=== PATIENT | female | born 1940 | race Caucasian/White ===

== ENCOUNTER 2019-06-18 12:47 | Inpatient (IN) | payer OTHER ==
[~2019-06-18] VITALS: Ht 157.5 cm; Wt 61.4 kg
[~2019-06-18 12:47] MED LIST: ACETAMINOPHEN325 M1 PO; ADULT LOW DOSE81 MG PO; ASPIR 8181 MG PO; ASPIRIN325 PO; ATORVASTATIN CA40 MG PO; CIPRO500 MG PO; CLOPIDOGREL75 MG PO; COREG6.25 MG PO; CRESTOR10 MG PO; HYDROCODON-ACE1 EAC7 PO; HYDROCODONE-AP1 EAC6 PO; IMDUR 30 MG TAB30 M1 PO; MEDROLDOSEPACK PO; MOM PO; MYLANTA TABLET1 TA1 PO; NITROGLYCERIN0.4 MG SUBLING; PLAVIX 75 MG TA75 M1 PO; TESSALON PERLE100 M1 PO; ULTRAM 50MG TAB50 MG PO; ZPAK PO
[2019-06-18] MEDS ORDERED: DULCOLAX5 MG PO (13:13)
[2019-06-18] MEDS ORDERED: LIPITOR80 MG PO (13:13)
[2019-06-18 13:21] VITALS: BP 141/43
[2019-06-18 13:31] LABS: ABSOLUTE EOSINOPHILS 0.1 thou/uL (0.0-0.7); ABSOLUTE LYMPHOCYTES 1.1 thou/uL (0.8-5.3); ABSOLUTE MONOCYTES 0.5 thou/uL (0.0-1.2); ABSOLUTE NEUTROPHILS 2.8 thou/uL (1.6-8.1); BASOPHILS 0.9 %; EOSINOPHILS 1.8 %; HEMATOCRIT 33.3 % (37.0-47.0); HEMOGLOBIN 10.9 gm/dL (12.0-15.0); LYMPHOCYTES 24.3 %; MCH 27.7 pg (26.0-34.0); MCHC 32.7 g/dL (28.0-37.0); MCV 84.5 fL (80.0-100.0); MONOCYTES 11.8 %; MPV 8.1 fl. (7.2-11.1); NUCLEATED RBCS 0 /100WBC; PLATELET COUNT* 182 thou/uL (150-400); POLYS 61.2 %; RBC 3.95 mil/uL (4.20-5.00); RDW-CV 15.4 % (10.5-14.5); WBC 4.6 thou/uL (4.0-11.0)
[2019-06-18 13:39] LABS: ANION GAP 9 mmol/L (7-16); BUN 12 mg/dL (7-18); CALCIUM 8.1 mg/dL (8.5-10.1); CHLORIDE 106 mmol/L (98-107); CO2 25 mmol/L (21-32); CREATININE 0.7 mg/dL (0.6-1.3); GLUCOSE 161 mg/dL (70-99); POTASSIUM 3.7 mmol/L (3.5-5.1); SODIUM 140 mmol/L (136-145)
[2019-06-18 13:41] LABS: PROTIME 10.6 Seconds (9.20-11.50)
[2019-06-18 13:50] LABS: ALBUMIN 3.2 g/dL (3.4-5.0); ALKALINE PHOSPHATASE 85 U/L (46-116); LIPASE 180 U/L (73-393); NT-PRO BRAIN NAT PEPTIDE 778 pg/mL (<300); SGOT 14 U/L (15-37); SGPT 19 U/L (30-65); TOTAL BILIRUBIN 0.3 mg/dL (<0.1-1.0); TOTAL PROTEIN 6.1 g/dL (6.4-8.2); TROPONIN-I LEVEL <0.06 ng/mL (<0.06)
[2019-06-18 15:23] VITALS: BP 141/43
[2019-06-18 15:30] VITALS: BP 156/62
[2019-06-18 20:00] VITALS: BP 102/41
[2019-06-19] VITALS (7 sets, daily range): BP systolic 111–145; BP diastolic 44–55
[2019-06-19 05:02] LABS: ABSOLUTE EOSINOPHILS 0.1 thou/uL (0.0-0.7); ABSOLUTE LYMPHOCYTES 1.3 thou/uL (0.8-5.3); ABSOLUTE MONOCYTES 0.7 thou/uL (0.0-1.2); ABSOLUTE NEUTROPHILS 2.8 thou/uL (1.6-8.1); BASOPHILS 0.9 %; EOSINOPHILS 1.5 %; HEMATOCRIT 34.5 % (37.0-47.0); HEMOGLOBIN 11.4 gm/dL (12.0-15.0); LYMPHOCYTES 26.5 %; MCH 27.6 pg (26.0-34.0); MCHC 33.1 g/dL (28.0-37.0); MCV 83.4 fL (80.0-100.0); MONOCYTES 13.7 %; MPV 8.2 fl. (7.2-11.1); NUCLEATED RBCS 0 /100WBC; PLATELET COUNT* 190 thou/uL (150-400); POLYS 57.4 %; RBC 4.14 mil/uL (4.20-5.00); RDW-CV 15.6 % (10.5-14.5); WBC 4.8 thou/uL (4.0-11.0)
[2019-06-19 05:08] LABS: CALCIUM 8.6 mg/dL (8.5-10.1); CREATININE 0.7 mg/dL (0.6-1.3); POTASSIUM 3.7 mmol/L (3.5-5.1)
--- NOTE | 2019-06-19 11:59 | EKG ---
[place] [address] ELECTROCARDIOGRAM REPORT Name: CASECRISTINE Room: [address] ADM IN M.R.#: [id number] Admission: 06/18/19 Attend Phys: Nicola Jacobson MD Discharge: Date of : 42 Report #: [id number] THIS REPORT FOR: //name// [facility] ED Test Date: 2019-06-18 Test Time: 13:13:20 Pat Name: CRISTINE FREEMAN Department: Room: [facility] Gender: F Executive Recruiter: EV : 1940 Requested By: Rylan Villanueva Order Number: [id number] MD: Abdirashid Dinero Measurements Intervals [place] Rate: 61 P: 85 RI: 203 QRS: -16 QRSD: 108 T: 144 QT: 429 QTc: 432 Interpretive Statements Sinus rhythm LVH with secondary repolarization abnormality Anterior Q waves, possibly due to LVH Compared to ECG 05/14/2017 08:40:19 Q waves now present ST (T wave) deviation still present Electronically Signed On 06-19-2019 11:59:18 CDT by Abdirashid Dinero [email or web address] <ELECTRONICALLY SIGNED> By: Abdirashid Dinero MD, [facility] 06/19/19 1159 1313 1313 Abdirashid Dinero MD, [facility] /EPI
--- NOTE | 2019-06-19 12:56 | 2DMMODE ---
[place] [address] 2 D/M-MODE ECHOCARDIOGRAM Name: CRISTINE FREEMAN Room: [address] ADM IN [facility]#: [id number] Admission: 06/18/19 Attend Phys: Nicola Jacobson, Discharge: Date of : 42 Date of Service: 06/19/19 1255 Report #: [id number] THIS REPORT FOR: //name// APPROVED REPORT Study performed: 06/19/2019 11:35:08 EXAM: Comprehensive 2D, Doppler, and color-flow Echocardiogram Patient Location: In-Patient Room #: 201 Status: routine BSA: 1.61 HR: 60 bpm BP: 111/44 mmHg Rhythm: NSR Other Information Study Quality: Good Indications Murmur 2D Dimensions IVSd: 14.70 (7-11mm) LVOT Diam: 18.78 (18-24mm) LVDd: 42.88 mm PWd: 13.37 (7-11mm) Ascending Ao: 28.57 (22-36mm) LVDs: 28.55 (25-40mm) Aortic Root: 28.51 mm Volumes Left Atrial Volume (Systole) LA ESV Index: 39.70 mL/m2 Aortic Valve AoV Peak Gurwinder.: 3.74 m/s AO Peak Gr.: 55.95 mmHg AO Mean Gr.: 32.39 mmHg AO V2 VTI: 93.04 cm Mitral Valve MV Mean Gr.: 1.47 mmHg E/A Ratio: 0.75 MV Decel. Time: 371.89 ms MV E Max Gurwinder.: 0.71 m/s MV PHT: 107.85 ms MVA (PHT): 2.04 cm2 [place] [address] 2 D/M-MODE ECHOCARDIOGRAM Name: CASECRISTINE Room: [address] IN ..#: [id number] Admission: 06/18/19 Attend Phys: Nicola Jacobson, Discharge: Date of : 42 Date of Service: 06/19/19 1255 Report #: [id number] TDI E/Lateral E': 11.83 E/Medial E': 14.20 Medial E' Gurwinder.: 0.05 m/s Lateral E' Gurwinder.: 0.06 m/s Pulmonary Valve PV Peak Gurwinder.: 0.90 m/s PV Peak Gr.: 3.21 mmHg Tricuspid Valve RAP Estimate: 5.00 mmHg TR Peak Gr.: 22.77 mmHg RVSP: 27.00 mmHg PA Pressure: 27.00 mmHg Left Ventricle The left ventricle is normal size. There is normal LV segmental wall motion. Mild to moderate concentric left ventricular hypertrophy. Left ventricular systolic function is normal. The left ventricular ejection fraction is within the normal range. LVEF is 55-60%. Grade I - abnormal relaxation pattern. Right Ventricle The right ventricle is normal size. The right ventricular systolic function is normal. Atria Left atrium is mildly dilated. The right atrium size is normal. Aortic Valve Moderate aortic valve sclerosis. Trace aortic regurgitation. Mild to moderate aortic stenosis. Mitral Valve There is mitral annular calcification. Mild to moderate mitral regurgitation. No evidence of mitral valve stenosis. Tricuspid Valve The tricuspid valve is normal in structure. Trace tricuspid regurgitation. No pulmonary hypertension. Pulmonic Valve The pulmonary valve is normal in structure. There is no pulmonic valvular regurgitation. [place] [address] 2 D/M-MODE ECHOCARDIOGRAM Name: CRISTINE FREEMAN Room: [address] IN ..#: [id number] Admission: 06/18/19 Attend Phys: Nicola Jacobson, Discharge: Date of : 42 Date of Service: 06/19/19 1255 Report #: [id number] The aortic root is normal in size. IVC is normal in size and collapses >50% with inspiration. Pericardium There is no pericardial effusion. <Conclusion> The left ventricle is normal size. Mild to moderate concentric left ventricular hypertrophy. Left ventricular systolic function is normal. The left ventricular ejection fraction is within the normal range. LVEF is 55-60%. Grade I - abnormal relaxation pattern. The right ventricle is normal size. Left atrium is mildly dilated. Moderate aortic valve sclerosis. Trace aortic regurgitation. Mild to moderate aortic stenosis There is mitral annular calcification. Mild to moderate mitral regurgitation. No evidence of mitral valve stenosis. The tricuspid valve is normal in structure. IVC is normal in size and collapses >50% with inspiration. There is no pericardial effusion. There is normal LV segmental wall motion. <ELECTRONICALLY SIGNED> By: Abdirashid Dinero MD, [facility] 06/19/19 1255 1255 1255 Abdirashid Dinero MD, [facility] /INF
--- NOTE | 2019-06-19 17:03 | CARDNUC ---
[place] [address] CARDIAC NUCLEAR IMAGING REPORT Name: CRISTINE FREEMAN Room: [address] IN [facility]#: [id number] Admission: 06/18/19 Attend Phys: Nicola Jacobson, Discharge: Date of : 42 Date of Service: 06/19/19 1703 Report #: [id number] THIS REPORT FOR: //name// APPROVED REPORT Study performed: 06/19/2019 15:03:20 Exam: Nuclear Stress Test Indication: Chest pain, Dyspnea, Lightheadedness, Diaphoresis. Patient Location: In-Patient Room #: 201 Stress Tech: Anju Retana Stress Nurse: Madonna Solorzano R.N. Ht: 5 ft 2 in Wt: 134 lbs BSA: 1.61 m2 BMI: 24.50 Medical History Medical History: Angina, CAD s/p stent, Carotid artery disease, Fatigue, HTN, Hyperlipidemia, SOB, Weakness, Systolic Murmur, LE edema, Carotid endarterectomy. Medications: Carvedilol, Atorvastatin, ASA 81 mg, Plavix, Hydralazine, NTG. Allergies: No known drug allergies Cardiac Risk Factors: Age, FHX of CAD, HTN, Hyperlipidemia, SOB, Past Smoker, Edema, Carotid Artery Endarterectomy. Previous Cardiac Procedures: PCI Pretest Chest Pain Characteristics: No chest pain Exercise History: Indeterminate Physical Disabilities: Generalized weakness. Unstable gait. Meds Held (24 hrs): Carvedilol, NTG. Stress Test Details Stress Test: Pharmacologic stress testing performed using 0.4 mg of regadenoson per 5 mL given IV over 10 seconds. Reason for pharmacologic stress test: Unstable gait, generalized weakness.. HR Resting HR: 62 bpm Max Heart Rate (APMHR): 143 bpm Max HR Achieved: 104 bpm Target HR (85% APMHR): 121 bpm % of APMHR: 72 Recovery HR: [place] [address] CARDIAC NUCLEAR IMAGING REPORT Name: CRISTINE FREEMAN Room: [address] IN [facility]#: [id number] Admission: 06/18/19 Attend Phys: Nicola Jacobson, Discharge: Date of : 42 Date of Service: 06/19/19 1703 Report #: [id number] Resting BP: 145/71 mmHg Max BP: 173/61 mmHg ECG Resting ECG: Sinus Rhythm, LVH with repolarization changes Stress ECG: Sinus Rhythm, LVH with repolarization changes ST Change: None Arrhythmia: None Recovery ECG: Sinus Rhythm, LVH with repolarization changes Recovery ST Change: None Recovery Arrhythmia: None Clinical Reason for Termination: Completed protocol Stress Symptoms: Dyspnea, Chest pain, Lightheaded, Heaviness in legs and arms, Center CP 1-11/20. Exercise duration: 00 min 00 sec Exercise capacity: 1.00 METs The patient tolerated Lexiscan infusion without significant cardiac symptoms. Nurse Comments 78 year old female inpatient presented with recent HX of CP, SOA, Lightheadedness and Diaphoresis. Patient tolerated sitting Lexiscan well. Recovery unremarkable with PO caffeine, effective. Patient was escorted via wheelchair by staff to Nuclear Medicine for images. Patient was stable with no complaints at that time. Stress ECG Conclusion Baseline 12-lead EKG shows sinus rhythm. There is left hypertrophy with repolarization abnormalities. EKGs during and post Lexiscan infusion showed no significant changes when compared to baseline. NM EXAM: Myocardial Perfusion REST/STRESS Imaging Protocol: Rest Tc-99m/Stress Tc-99m 1 day Resting Data Rest SPECT myocardial perfusion imaging was performed in supine position 30 minutes following the intravenous injection of 11.0 mCi of Tc-99m Sestamibi. Time of rest injection: 13:50 The images were gated to evaluate regional wall motion and calculate left [place] [address] CARDIAC NUCLEAR IMAGING REPORT Name: CASECRISTINE Room: [address] IN M.R.#: [id number] Admission: 06/18/19 Attend Phys: Nicola Jacobson, Discharge: Date of : 42 Date of Service: 06/19/19 1703 Report #: [id number] Administration Route: IV Administration Site: Right AC Pharmacologic Stress Pharmacologic stress test was performed by injecting Regadenoson 0.4 mg IV push followed by the intravenous injection of 35.8 mCi of Tc-99m Sestamibi. Time of stress injection: 15:20 Administration Route: IV Administration Site: Right AC Heart Rate at time of stress injection: 104 bpm. Gated Stress SPECT was performed 40 minutes after stress injection. The images were gated to evaluate regional wall motion and calculate left ventricular ejection fraction. Prone imaging was performed. Study Quality Study: Fair Artifact: Mild Diaphragmatic artifact Study Data At rest, the left ventricular ejection fraction was 66%.. Post stress, the left ventricular ejection was 67%.. TID = 1.53. Perfusion Perfusion images obtained at rest and post Lexiscan stress showed uniform uptake of the radioisotope throughout the myocardium. Wall Motion Gated images were limited due to diaphragmatic attenuation artifact. Review of the raw data shows relatively normal wall motion. Nuclear Conclusion ECG Findings: non-diagnostic Clinical Findings: negative for ischemia Nuclear Findings: negative for ischemia Exercise Capacity: not assessed Left Ventricular Function: nondiagnostic data Perfusion images showed no defect to suggest infarct or ischemia. Review of the raw data suggests normal LV systolic function. Echo correlation recommended. This is not a high risk study. <Conclusion> Baseline 12-lead EKG shows sinus rhythm. [place] [address] CARDIAC NUCLEAR IMAGING REPORT Name: CASE,CRISTINE Carrasco Room: [address] IN [facility]#: [id number] Admission: 06/18/19 Attend Phys: Nicola Jacobson, Discharge: Date of : 42 Date of Service: 06/19/19 1703 Report #: [id number] with repolarization abnormalities. EKGs during and post Lexiscan infusion showed no significant changes when compared to baseline. <ELECTRONICALLY SIGNED> By: Iron Gant MD, FACC 06/19/191702 02 02 Iron Gant MD, FACC /INF
== END 2019-06-19 18:04 | disposition home or self-care (01) | DRG 392 ==
LOC: M.ERS 12:47 → M.TBA-ER 14:05 → M.2W 14:05
PROVIDERS: Emergency Medicine; ADMIT Internal Medicine
DX: K21.9 Gastro-esophageal reflux disease without esophagitis (principal); I25.119 Atherosclerotic heart disease of native coronary artery with unspecified angina pectoris; I10 Essential (primary) hypertension; E78.5 Hyperlipidemia, unspecified; Z90.710 Acquired absence of both cervix and uterus; Z95.5 Presence of coronary angioplasty implant and graft; Z79.82 Long term (current) use of aspirin; Z79.899 Other long term (current) drug therapy; Z87.11 Personal history of peptic ulcer disease

== ENCOUNTER 2021-06-03 10:47 | Observation (INO) | payer OTHER ==
[2021-06-03] VITALS (15 sets, daily range): BP systolic 110–192; BP diastolic 37–68
[~2021-06-03] VITALS: Ht 157.5 cm; Wt 58.1 kg
--- NOTE | ~2021-06-03 | H ---
[address] [address] HISTORY AND PHYSICAL Name: CRISTINE FREEMAN Room: [address] Marylu Polo#: [id number] Admission: 06/03/21 Attend Phys: Iron Gant MD Discharge: 06/04/21 Date of : 42 Report #: [id number] THIS REPORT FOR: cc: Kitty Gloria Linda J. DO [facility],Medical Records Staff ~ Please refer to the History and Physical performed in the physician's office. By: 0646Medical Records Staff VALENCIA /RAFFI
[~2021-06-03 10:47] MED LIST changes: +DULCOLAX5 MG PO; +LIPITOR80 MG PO
[2021-06-03 11:45] LABS: HEMATOCRIT 40.1 % (37.0-47.0); HEMOGLOBIN 12.7 gm/dL (12.0-15.0); MCH 26.4 pg (26.0-34.0); MCHC 31.7 g/dL (28.0-37.0); MCV 83.2 fL (80.0-100.0); MPV 8.2 fl. (7.2-11.1); RBC 4.82 mil/uL (4.20-5.00); RDW-CV 15.8 % (10.5-14.5); WBC 6.5 thou/uL (4.0-11.0)
[2021-06-03 11:58] LABS: APTT 28.3 Seconds (25.0-31.3); PROTIME 10.3 Seconds (9.20-11.50)
[2021-06-03 12:00] LABS: ALBUMIN 4.1 g/dL (3.4-5.0); ALKALINE PHOSPHATASE 126 U/L (46-116); ANION GAP 8 mmol/L (7-16); BUN 18 mg/dL (7-18); CALCIUM 8.7 mg/dL (8.5-10.1); CHLORIDE 104 mmol/L (98-107); CHOLESTEROL 235 mg/dL (<200); CO2 28 mmol/L (21-32); CREATININE 0.6 mg/dL (0.6-1.3); GLUCOSE 90 mg/dL (70-99); HDL CHOLESTEROL 60 mg/dL (>40); LDL CHOLESTEROL 154 mg/dL (<100); POTASSIUM 4.1 mmol/L (3.5-5.1); SGOT 20 U/L (15-37); SGPT 23 U/L (30-65); SODIUM 140 mmol/L (136-145); TC:HDL 3.9 Ratio (Not establshd); TOTAL BILIRUBIN 0.4 mg/dL (<0.1-1.0); TOTAL PROTEIN 7.5 g/dL (6.4-8.2); TRIGLYCERIDE 106 mg/dL (<150); VLDL 21 mg/dL (<40)
[2021-06-03 12:03] LABS: SERUM ASSESSMENT Clear
--- NOTE | 2021-06-03 15:07 | CARD ---
[address] [address] CARDIAC CATH REPORT Name: CRISTINE FREEMAN Room: [address] Marylu M.R.#: [id number] Admission: 06/03/21 Attend Phys: Iron Gant MD Discharge: Date of : 42 Report #: [id number] THIS REPORT FOR: cc: Kitty Gloria Linda J. DO Holkins, John M. MD [facility] ~ APPROVED REPORT Study performed: 06/03/2021 12:51:25 Patient Details Patient Status: Out-Patient Room #: The patient is a 80 year-old female Event Personnel Iron Gant Marketing Team Lead, Paddy Soto RTR Monitor, Tutu Schrader McKeel, Tiffany RN RN, Abdirashid Dinero Solar Power Installer Procedures Performed Left Heart Cath w/or w/o Coronaries [id number] [facility] Place w/wo Plasty Single RCA [id number] Hemostasis w/ Angioseal Indication Dyspnea, Chest pain Risk Factors Hypercholesterolemia, Hypertension Previous Procedures/Diagnoses Previous PCI Admission/Lab Medications/Medications given during procedure Lidocaine Subcut 20 ml, Midazolam (Versed) IV 1 mg, Fentanyl IV 25 mcg, Angiomax IV 9 ml, Angiomax IV 20.3 ml per hr, Effient PO 60 mg, Aspirin PO 325 mg Procedure Narrative The patient was brought electively to the Cardiac Catheterization Laboratory and was prepped and draped in a sterile manner. The right femoral was infiltrated with 2% Lidocaine subcutaneous anesthesia. IV conscious sedation was used throughout procedure with appropriate monitoring and was performed in the [place] [address] CARDIAC CATH REPORT Name: CRISTINE FREEMAN Room: [address] Mary[place] Polo#: [id number] Admission: 06/03/21 Attend Phys: Iron Gant MD Discharge: Date of : 42 Report #: [id number] who was an independent trained observer other than the physician performing the procedure. A [place] 6 FR sheath was inserted into the right femoral artery. Coronary angiography was performed using coronary diagnostic catheters. The right coronary system was accessed and visualized with a Diagnostic JR4 6Fr catheter. The left coronary system was accessed and visualized with a Diagnostic JL4 6Fr catheter. The left ventricle was accessed and visualized with a Diagnostic JR4 6Fr catheter. Left ventricular/Aortic Valve gradient assessed via catheter pullback. Pre-demployment femoral angiogram was performed . Closure device was deployed with a 6 Fr Angioseal. The patient tolerated the procedure well and there were no complications associated with the procedure. There was no hematoma. Intraoperative Conscious Sedation Sedation start time: 1251 Case end Time: 1313 Fentanyl 25 mcg Versed 1 mg Fluoro Time: 3.7 minutes Dose: DAP 54248 cGycm2 512.97 mGy Contrast Type and Amount: Omnipaque 110 ml Diagnostic Cath Left Main 30% ostial proximal narrowing LAD Widely patent proximal LAD stent with 0% LAD narrowing Circumflex Small nondominant vessel with 30% proximal narrowing Right Coronary Large dominant vessel with 75% tubular proximal stenosis and 50% mid vessel stenosis Left Ventriculography Left Ventriculography was not performed. Hemodynamics The aortic pressure is 154/46 mmHg with a mean of 76 mmHg. The left ventricular pressure is 141/6 mmHg with a mean of mmHg. The left ventricular end diastolic pressure is 24 mmHg. PCI Technique Lesion Anticoagulation was achieved with Angiomax. Percutaneous coronary intervention was performed on the proximal right coronary artery. The lesion stenosis prior to intervention was 75% with JOSETTE 3 flow. A 6F JR 4.0 Guide Catheter was used to engage the Right ostium. A IG: BMW 190cm Interventional Guidewire was [place] [address] CARDIAC CATH REPORT Name: CRISTINE FREEMAN Room: [address]#: [id number] Admission: 06/03/21 Attend Phys: Iron Gant MD Discharge: Date of : 42 Report #: [id number] BALLOON DILATION A Balloon catheter Trek RX 2.75 X 12 was inserted and inflated up to 14.00atm for 11seconds. STENT DEPLOYMENT A drug-eluting stent Davian RX Stent 3.0X18mm was inserted and inflated up to 12.00atm for 6seconds. Additional Inflation: 14.00atm for 5seconds. Final angiography reveals 0 % stenosis with JOSETTE 3 flow. Conclusion 1. Significant coronary artery disease characterized by the following: A 30% ostial proximal left main coronary artery narrowing B widely patent proximal LAD stent C 30% narrowing of the proximal portion of the small nondominant circumflex D 75% tubular proximal right coronary stenosis with 50% mid vessel stenosis 2. Minimal trans aortic valvular systolic pressure gradient on direct pullback 3. Successful PCI with deployment of drug-eluting stent at the site of 75% tubular proximal right coronary stenosis with 0% residual narrowing and JOSETTE-3 flow to the distal vessel Recommendations Cardiac Risk Reduction Program Aggressive Medical Therapy Medications Administered Aspirin (any) [place] [address] CARDIAC CATH REPORT Name: CRISTINE FREEMAN Room: [address] Melani#: [id number] Admission: 06/03/21 Attend Phys: Iron Gant MD Discharge: Date of : 42 Report #: [id number] Diagnostic Cath Approved by: Iron Gant MD Date/Time: 06/03/2021 15:03:31 <ELECTRONICALLY SIGNED> By: Abdirashid Dinero MD, [facility] 06/03/21 1507 1507 1507John Timi Dinero MD, FACC /INF
--- NOTE | 2021-06-03 17:02 | TEE ---
[place] [address] TRANSESOPHAGEAL ECHOCARDIOGRAM Name: CRISTINE FREEMAN Room: [address]#: [id number] Admission: 06/03/21 Attend Phys: Iron Gant, Discharge: Date of : 42 Date of Service: 06/03/21 1702 Report #: [id number] THIS REPORT FOR: cc: Kitty Gloria Linda J. DO Liston, Michael J. MD [facility] ~ APPROVED REPORT Study performed: 06/03/2021 12:04:31 EXAM: Transesophageal Echocardiogram Patient Location: Out-Patient Status: routine HR: 62 bpm BP: 148/51 mmHg Rhythm: NSR Other Information Study Quality: Good Indications HOCM, PRE CATH, RULE OUT AORTIC STENOSIS Echo Enhancing Agent Indication: Rule out Shunt Agent(s) / Amount(s) Used: Agitated Saline 10 cc Procedure After obtaining informed consent, patient underwent transesophageal echo in the [employer]. Type of Sedation : Conscious Sedation Sedation was administered by Danielle Guevara RN. Sedation start time: 1220 Case end Time: 1237 Sedation was achieved intravenously with: Versed (3) Fentanyl (75) Transesophageal probe was inserted and advanced into esophagus without difficulty by Iron Gant MD, FACC. Echo enhancement indication: R/O Septal defect. Echo enhancement agent administered: Agitated Saline The SHILOH was performed without complications. Throughout the procedure, the blood pressure, pulse oximetry, cardiac rhythm, and rate were monitored. The patient tolerated the procedure without adverse effects. Recovery from conscious sedation was uneventful [place] [address] TRANSESOPHAGEAL ECHOCARDIOGRAM Name: CRISTINE FREEMAN Room: [address]#: [id number] Admission: 06/03/21 Attend Phys: Iron Gant, Discharge: Date of : 42 Date of Service: 06/03/21 1702 Report #: [id number] stable. Left Ventricle The left ventricle is normal size. There is normal LV segmental wall motion. Moderate to severe concentric left ventricular hypertrophy. 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 Left ventricular systolic function is normal. The left ventricular ejection fraction is within the normal range. LVEF is 65-70%. Right Ventricle The right ventricle is normal size. The right ventricular systolic function is normal. Atria The left atrium size is normal. No thrombus is visualized in the left atrium or appendage. The interatrial septum is intact with no evidence for an atrial septal defect. The right atrium size is normal. Aortic Valve Mild aortic valve sclerosis. No aortic regurgitation is present. There is no aortic valvular stenosis. Mitral Valve The mitral valve is normal in structure. Mild mitral regurgitation. No evidence of mitral valve stenosis. Tricuspid Valve The tricuspid valve is normal in structure. There is no tricuspid valve regurgitation noted. Pulmonic Valve The pulmonary valve is normal in structure. There is no pulmonic valvular regurgitation. Great Vessels The aortic root is normal in size. Pericardium There is no pericardial effusion. <Conclusion> The left ventricle is normal size. Moderate to severe concentric left ventricular hypertrophy. Echo findings are consistent [place] [address] TRANSESOPHAGEAL ECHOCARDIOGRAM Name: CASE,CRISTINE Carrasco Room: [address] M.R.#: [id number] Admission: 06/03/21 Attend Phys: Iron Gant, Discharge: Date of : 42 Date of Service: 06/03/211701 Report #: [id number] cardiomyopathy. Left ventricular systolic function is normal. The left ventricular ejection fraction is within the normal range. LVEF is 65-70%. The left atrium size is normal. No thrombus is visualized in the left atrium or appendage. Mild aortic valve sclerosis. Mild mitral regurgitation. <ELECTRONICALLY SIGNED> By: Iron Gant MD, [facility] 06/03/211701 01 1702 Iron Gant MD, FACC /INF
[2021-06-04 02:30] VITALS: BP 127/48
[2021-06-04 04:33] LABS: HEMOGLOBIN 11.3 gm/dL (12.0-15.0); MCH 26.7 pg (26.0-34.0); MCHC 32.2 g/dL (28.0-37.0); MCV 82.9 fL (80.0-100.0); MPV 8.5 fl. (7.2-11.1); RBC 4.22 mil/uL (4.20-5.00); RDW-CV 15.9 % (10.5-14.5)
[2021-06-04 05:07] LABS: ALBUMIN 3.5 g/dL (3.4-5.0); CALCIUM 8.6 mg/dL (8.5-10.1); CREATININE 0.7 mg/dL (0.6-1.3); POTASSIUM 4.2 mmol/L (3.5-5.1); TOTAL BILIRUBIN 0.3 mg/dL (<0.1-1.0); TOTAL PROTEIN 6.5 g/dL (6.4-8.2)
[2021-06-04] MEDS ORDERED: EFFIENT10 MG PO (08:47)
--- NOTE | 2021-06-04 11:17 | EKG ---
[place] [address] ELECTROCARDIOGRAM REPORT Name: CASECRISTINE Room: [address] M.R.#: [id number] Admission: 06/03/21 Attend Phys: Iron Gant, Discharge: Date of : 42 Date of Service: 06/04/21 0656 Report #: [id number] THIS REPORT FOR: //name// [facility] Test Date: 2021-06-04 Test Time: 06:56:24 Pat Name: CRITSINE FREEMAN Department: Room: [facility] Gender: F Manager Of Program: VIANEY : 1940 Requested By: Iron Gant Order Number: [id number] Reading MD: Abdirashid Dinero Measurements Intervals [place] Rate: 59 P: 115 AL: 188 QRS: -28 QRSD: 114 T: 136 QT: 442 QTc: 438 Interpretive Statements Sinus rhythm LVH with IVCD and secondary repol abnrm Anterior ST elevation, probably due to LVH Compared to ECG 06/18/2019 13:13:20 Intraventricular conduction delay now present ST (T wave) deviation now present Q waves no longer present Electronically Signed On 06-04-2021 11:17:30 CDT by Abdirashid Dinero [email or web address] <ELECTRONICALLY SIGNED> By: Abdirashid Dinero MD, [facility] 06/04/21 1117 0656 0656 Abdirashid Dinero MD, [facility] /EPI
[2021-06-04 11:58] VITALS: BP 109/46
[2021-06-04 12:22] VITALS: BP 109/46
--- NOTE | 2021-06-04 17:47 | D ---
[address] [address] DISCHARGE SUMMARY Name: CRISTINE FREEMAN Room: [address] Marylu MLorena#: [id number] Admission: 06/03/21 Attend Phys: Iron Gant MD Discharge: 06/04/21 Date of : 42 Report #: [id number] THIS REPORT FOR: cc: Kitty Gloria Linda J. DO Liston, Michael J. MD [facility] ~ cc: Kitty Gloria DO DATE OF DISCHARGE: 06/04/2021 REASON FOR ADMISSION: Increased dyspnea and possible aortic valvular disease. HOSPITAL COURSE: The patient was brought to the catheterization lab electively for transesophageal echocardiogram, coronary angiography and left heart catheterization. On transesophageal echocardiogram, she was found to have a fairly normal appearing aortic valve. She did have thickening of the left ventricular wall suggestive of possible hypertrophic obstructive cardiomyopathy. The patient then underwent cardiac catheterization and was found to have no significant gradient across the left ventricular outflow tract. Incidentally, she was found to have a 75% proximal right coronary artery stenosis, which was a large and dominant vessel. She underwent drug-eluting stent placement to this area without complication. The remainder of the patient's hospital stay was unremarkable. She was discharged the following day uneventfully. DISCHARGE DIAGNOSES: 1. Coronary artery disease. 2. Essential hypertension. 3. Mixed hyperlipidemia. 4. Carotid disease with previous carotid endarterectomy. 5. History of coronary stenting in 2017. DISCHARGE MEDICATIONS: Will include aspirin 81 mg daily, carvedilol 6.25 mg b.i.d., Effient 10 mg daily and Nitrostat 0.4 mg sublingual p.r.n. She is STATIN INTOLERANT. DISPOSITION: The patient is to follow up with the Cardiology office in 4 weeks. <ELECTRONICALLY SIGNED> By: Iron Gant MD, [facility] 06/04/21 1747 0753 0808Miclc Gant MD, FAC /nt
--- NOTE | 2021-06-05 16:12 | EKG ---
[place] [address] ELECTROCARDIOGRAM REPORT Name: CASECRISTINE Room: [address] M.R.#: [id number] Admission: 06/03/21 Attend Phys: Iron Gant, Discharge: 06/04/21 Date of : 42 Date of Service: 06/03/21 1700 Report #: [id number] THIS REPORT FOR: //name// [facility] Test Date: 2021-06-03 Test Time: 17:00:04 Pat Name: CRISTINE FREEMAN Department: Room: [address] Gender: F [employer]: - : 1940 Requested By: Iron Gant Order Number: [id number] Reading MD: Abdirashid Dinero Measurements Intervals [place] Rate: 60 P: 78 MI: 191 QRS: -21 QRSD: 119 T: 134 QT: 449 QTc: 449 Interpretive Statements Sinus rhythm LVH with IVCD and secondary repol abnrm Anterior ST elevation, probably due to LVH Compared to ECG 06/18/2019 13:13:20 Intraventricular conduction delay persists Q waves no longer present Electronically Signed On 06-05-2021 16:12:24 CDT by Abdirashid Dinero [email or web address] <ELECTRONICALLY SIGNED> By: Abdirashid Dinero MD, FACC 06/05/21 1612 99 99 Abdirashid Dinero MD, [facility] /EPI
== END 2021-06-04 12:37 | disposition home or self-care (01) ==
LOC: M.CL 10:47 → M.TBA-CV 13:20 → M.2W 17:08
PROVIDERS: ADMIT Internal Medicine Cardiovascular Disease; ATTEND Internal Medicine Cardiovascular Disease
DX: I25.10 Atherosclerotic heart disease of native coronary artery without angina pectoris (principal); Z20.822 Contact with and (suspected) exposure to COVID-19; I10 Essential (primary) hypertension; E78.2 Mixed hyperlipidemia; I65.29 Occlusion and stenosis of unspecified carotid artery; Z88.5 Allergy status to narcotic agent; Z79.82 Long term (current) use of aspirin; Z79.899 Other long term (current) drug therapy